=== PATIENT | male | born 1970 | race Two or more races ===

== ENCOUNTER 2021-12-17 22:47 | Emergency (ER) | payer OTHER ==
[~2021-12-17] VITALS: Ht 177.8 cm; Wt 79.4 kg
--- NOTE | 2021-12-17 23:19 | NUR ---
ROSALINDA FOR C/O FEELING WEAK WHILE WALKING HOME FROM [place]. PT STATES HE SUDDENLY BECAME WEAK AND COULD NOT FINISH HIS TRIP HOME AND ALSO FEELS THOUGH HE CANNOT TALK LOUDLY HE DOES AT BASELINE. EMS BS 103. PT APPEARS LETHARGIC ON ASSESSMENT. 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 PLACED ON MONITOR AND V/S WNL.
[2021-12-17] MEDS ORDERED: IV NS 0.9% 1,000 ML BAG IV ONE (23:30)
--- NOTE | 2021-12-17 23:32 | NUR ---
20G IV STARTED AT . BLOOD DRAWN AND SENT TO LAB
[2021-12-17 23:55] LABS: BASOPHILS % (AUTO) 0.3 % (0.0-2.0); EOSINOPHILS % (AUTO) 1.9 % (0.0-6.0); HEMATOCRIT 43 % (39-51); LYMPHOCYTES # (AUTO) 1.4 K/uL (0.8-4.8); LYMPHOCYTES % (AUTO) 14.1 % (20.0-44.0); MEAN CORPUSCULAR HGB CONC 33 g/dl (31.0-36.0); MEAN CORPUSCULAR VOLUME 93 fL (80-96); MONOCYTES # (AUTO) 0.9 K/uL (0.1-1.30); MONOCYTES % (AUTO) 8.7 % (2.0-12.0); NEUTROPHILS # (AUTO) 7.6 K/uL (1.8-8.9); PLATELET COUNT (AUTO) 265 K/uL (150-450); RED BLOOD CELL COUNT(AUTO) 4.61 MIL/uL (4.5-6.0); WHITE BLOOD COUNT (AUTO) 10.1 K/uL (4.3-11.0)
--- NOTE | 2021-12-17 23:58 | NUR ---
PT STILL UNABLE TO PROVIDE URINE SAMPLE. PROVIDED WITH URINAL AND ENCOURAGED TO PROVIDE SAMPLE
[2021-12-18 00:07] LABS: CALCIUM, SERUM 8.9 mg/dL (8.5-10.1); CARBON DIOXIDE 30 mmol/L (21-32); CHLORIDE 102 mmol/L (98-107); CREATININE 1.1 mg/dL (0.6-1.3); GLUCOSE 178 mg/dL (74-106); POTASSIUM 3.2 mmol/L (3.5-5.1); SODIUM SERUM 138 mmol/L (136-145); UREA NITROGEN, BLOOD 17 mg/dL (7-18)
--- NOTE | 2021-12-18 00:07 | NUR ---
PT BEING TRANSPORTED TO CT
[2021-12-18 00:16] LABS: ALANINE AMINOTRANSFERASE 98 U/L (12-78); ALBUMIN 4.1 g/dL (3.4-5.0); ALKALINE PHOSPHATASE 103 U/L (46-116); ASPARTATE AMINOTRANSFERASE 177 U/L (15-37); BILIRUBIN,DIRECT 0.5 mg/dL (0.0-0.2); TOTAL PROTEIN, SERUM 7.2 g/dL (6.4-8.2)
[2021-12-18] MEDS ORDERED: POTASSIUM CHLORIDE 20 MEQ TAB.PRT.SR PO ONE ×2 (00:29→00:30)
--- NOTE | 2021-12-18 01:06 | NUR ---
PT STILL UNABLE TO URINATE, AWARE
--- NOTE | 2021-12-18 01:19 | NUR ---
urine collected sent to lab
[2021-12-18 01:35] LABS: BILIRUBIN,URINE NEGATIVE (NEGATIVE); COLOR,URINE YELLOW (YELLOW); LEUKOCYTE ESTERASE ,URINE NEGATIVE (NEGATIVE); NITRITE, URINE NEGATIVE (NEGATIVE); PROTEIN,URINE TRACE mg/dl (NEGATIVE); UGLUCOSE NEGATIVE (NEGATIVE)
--- NOTE | 2021-12-18 02:29 | NUR ---
Patient discharged to home in stable condition. Written and verbal after care instructions given. Patient verbalizes understanding of instruction.
[2021-12-18 02:31] VITALS: BP 143/70
== END 2021-12-18 02:35 | disposition home or self-care (01) ==
LOC: ER 22:58
DX: R53.1 Weakness (principal); E87.6 Hypokalemia; F19.10 Other psychoactive substance abuse, uncomplicated; R51.9 Headache, unspecified; F17.200 Nicotine dependence, unspecified, uncomplicated
CPT/HCPCS: 99285; 96360; 93005; 71045; 70450; 85025; 80048; 80076; 36415 ×2; 84484 ×2; 85730; 80320; 80307; 81003; J7030; G0480